=== PATIENT | female | born 1985 | race Caucasian/White ===

== ENCOUNTER 2020-10-10 08:39 | Inpatient (IN) | payer OTHER ==
[~2020-10-10] VITALS: Ht 167.6 cm; Wt 120.3 kg
[~2020-10-10 08:39] MED LIST: ALPRAZOLAM0.5 MG PO; ESCITALOPRAM OX20 MG PO; LABETALOL HCL300 MG PO; LEXAPRO5 MG PO; METFORMIN HCL500 MG PO; NORCO 5-325 TA1 EACH PO; VITAMIN D21250 MCG PO
--- OUTSIDE RECORDS SUMMARY | 2020-10-10 08:42 | XMS ---
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 Rain has no Care Guidelines for this patient. Marcelino VISIT COUNT (12 MO.) 2 R[facility] [place] TOTAL 2 NOTE: Visits indicate total known visits. ED/UCC VISIT TRACKING (12 MO.) 10/10/2020 08:40 [facility] [place] TYPE: Emergency COMPLAINT: - FEVER, URINE PROBLEM 04/14/2020 01:35 [facility] [place] TYPE: Emergency COMPLAINT: - RIGHT UPPER QUAD PAIN INPATIENT VISIT TRACKING (12 MO.) 04/14/2020 01:36 [facility] [place] TYPE: Observation COMPLAINT: - CHOLECYSTITIS DIAGNOSES: - Hepatic fibrosis - Other fdc (current) drug therapy - Essential (primary) hypertension - prison (current) use of oral hypoglycemic drugs - Calculus of bile duct without cholangitis or cholecystitis with obstruction - Nonalcoholic steatohepatitis (UNGER) - Calculus of gallbladder with acute and chronic cholecystitis without obstruction - Right upper quadrant pain - Obesity, unspecified - Type 2 diabetes mellitus without complications - Contact with and (suspected) exposure to other viral communicable diseases - Body mass index [BMI] 45.0-49.9, adult [email or web address]
[2020-10-10] MEDS ORDERED: LEXAPRO20 MG PO (09:02)
[2020-10-10] MEDS ORDERED: WELLBUTRIN XL150 MG PO (09:02)
[2020-10-10] MEDS ORDERED: FLOMAX0.4 MG PO (09:03)
--- NOTE | 2020-10-10 15:52 | NUR ---
PT ARRIVED TO ROOM FROM ED. PT RESTING IN BED. PT ON ROOM AIR, LUNG SOUNDS CLEAR, DENIES SOB. PT WITH CHILLS, TEMP 100.1 INITIALLY BUT INCREASED TO 101.7, GIVEN TYLENOL PER ORDER. IV ABX INFUSING TO R HAND. CMS INTACT, WITHOUT EDEMA. ADMISSION INTAKE COMPLETED. PT DENIES OTHER NEEDS AT THIS TIME.
--- NOTE | 2020-10-10 17:00 | NUR ---
PT CONTINUES TO HAVE FEVER, TEMP 102.3 ORAL, GIVEN TYLENOL DR. MOISÉS ADAMES NOTIFIED BY HIDE EXAMINER MAYGAN, NEW ORDER FOR IBUPROFEN 600MG ONCE.
--- NOTE | 2020-10-10 17:44 | NUR ---
PATIENT AWAKE IN BED, VITALS AND I&OS CHARTED. RN NOTIFIED OF 101.8 TEMP AND LOW BP. RN CONSUELO IN TO DO MANUAL BP. CALL LIGHT IN REACH, NO OTHER NEEDS AT THIS TIME
--- NOTE | 2020-10-10 17:48 | NUR ---
PT ADMITTED FOR UTI FROM ED. PT ON ROOM AIR, LUNG SOUNDS CLEAR, DENIES SOB. PT WITH PERSISTENT FEVER, GIVEN TYLENOL AND MOTRIN. IV ZOSYN. PT TOLERATING 60G CARB DIET. PT INDEPENDENT IN ROOM.
--- NOTE | 2020-10-10 19:05 | NUR ---
PT LYING IN BED. SHIFT REPORT RECIEVED BY RN. WHITE BOARD CLEARED. TEMP 98.3 AXILLARY. CALL LIGHT IN REACH.
--- NOTE | 2020-10-10 21:59 | NUR ---
IN RM TO GET VITALS FOR RN, NO FURHTER NEEDS AT THIS TIME
--- NOTE | 2020-10-10 22:00 | NUR ---
PT LYING IN BED. ASSESSMENT COMPLETE. I AND O'S DONE. SCHEDULED MEDS GIVEN. VS STABLE. PT DENIES PAIN BUT TYLENOL GIVEN PER REQUEST. GLUCOSE 108 NO INSULIN REQUIRED.CALL LIGHT IN REACH.
--- NOTE | 2020-10-11 | NUR ---
PT LYING IN BED. EYES CLOSED. RR WNL WITH UNLABORED BREATHING. CALL LIGHT IN REACH.
--- NOTE | 2020-10-11 02:32 | NUR ---
VS AND I&O COMPLETED. PT DENIES PAIN OR NAUSEA AT THIS TIME. CALL LIGHT IN REACH.
--- NOTE | 2020-10-11 02:33 | NUR ---
VITALS DONE, I&Os IN, NO FURHTER NEEDS AT THIS TIME
--- NOTE | 2020-10-11 03:35 | NUR ---
PT LYING IN BED. EYES CLOSED. RR WNL WITH UNLABORED BREATHING. CALL LIGHT IN REACH.
--- NOTE | 2020-10-11 04:18 | NUR ---
PT LYING IN BED. EYES CLOSED. RR WNL WITH UNLABORED BREATHING. IV SALINE LOCKED. CALL LIGHT IN REACH.
--- NOTE | 2020-10-11 05:07 | NUR ---
PT UTILIZES CALL LIGHT, STATES SHE FEELS THOUGH TEMP IS ELEVATED. RN TO ROOM TO CHECK VITALS. TEMP 102.8 ORAL. PRN TYLENOL ADMINISTERED. PT DENIES FURTHER NEEDS. WILL RECHECK TEMP. CALL LIGHT IN PT REACH. PRIMARY RNS NOTIFIED.
--- NOTE | 2020-10-11 05:23 | NUR ---
PT LYING IN BED. ANUPAMA WHITT STATED TEMP BEING IN THE 100'S. RECHECKED TEMP AND IS 99.9 AXILLARY AND 100.3 ORAL. CHARGE NURSE ADMINISTERED TYLENOL. CALL LIGHT IN REACH. ASSESSMENT COMPLETE. NO FURTHER NEEDS.
--- NOTE | 2020-10-11 07:10 | NUR ---
HANDOFF REPORT RECEIVED FROM IMAGING ENGINEER RN.
--- NOTE | 2020-10-11 07:36 | NUR ---
PT C/O CHEST PAIN,DESCRIBED FLUTTERY AND DENIED CRUSHING AND SOB. HR 102. STATES " I DONT WANT TO ." PT COMFORTED BY THIS RN. HX OF ANXIETY. PT REQUESTED XANAX. NOTIFIED, VERBAL ORDER 0.5MG XANAX TO BE GIVEN Q8 PRN. ORDER REPEATED BACK.
--- NOTE | 2020-10-11 08:30 | NUR ---
PT SITTING UP IN BED. PT ON ROOM AIR, LUNG SOUNDS CLEAR, DENIES SOB. PT DENIES PAIN. IV ZOSYN INFUSING. PT BLOOD PRESSURE 116 SYSTOLIC, LABETALOL HELD AT THIS TIME, WILL DISCUSS WITH MD. Rivera TFEEALBARO ANXIOUS, GIVEN XANAX PRN. CMS INTACT, WITHOUT EDEMA. PT GIVEN 1 UNIT SS HUMALOG FOR BLOOD GLUCOSE 155. DISCUSSED PLAN OF CARE FOR THE DAY, PT DENIES OTHER NEEDS AT THIS TIME.
--- NOTE | 2020-10-11 10:00 | NUR ---
DISCUSSED BP WITH DR. CURIEL OK TO GIVEN LABETOLOL, DR. CURIEL VERBAL ORDER FOR LR 500ML BOLUS, INFUSING. PT DENIES OTHER NEEDS AT THIS TIME.
--- NOTE | 2020-10-11 11:18 | NUR ---
PT COMPLAINT OF HEADACHE, REQUESTING PAIN MEDICATION, DISCUSSED WITH PT THAT TYLENOL IS AVAILABLE BUT WOULD MASK FEVER AND WE NEED TO KNOW IF SHE CONTINUES TO HAVE FEVERS, OFFERED COFFEE AND PT AGREEABLE. PT DENIES OTHER NEEDS, SPOUSE AT BEDSIDE.
--- NOTE | 2020-10-11 12:06 | NUR ---
IV INFUSION COMPLETED. IV SALINE LOCKED. PT REQUESTING TEMP TO BE TAKEN, IS STARTING TO FEEL CHILLS, TEMP 100.8, WILL RECHECK IN 30 MINUTES. PT DENIES OTHER NEEDS AT THIS TIME.
--- NOTE | 2020-10-11 15:00 | NUR ---
PT RESTING IN BED, JUST RETURNED FROM BATHROOM. PT ON ROOM AIR, LUNG SOUNDS CLEAR, DENIES SOB. IV ZOSYN INFUSING. NO ACUTE CHANGES. PT DENIES OTHER NEEDS AT THIS TIME.
--- NOTE | 2020-10-11 15:41 | NUR ---
DID PATIENT BREAKFAST AND LUNCH BLOOD SUGARS.
--- NOTE | 2020-10-11 18:23 | NUR ---
IV ZOSYN INFUSION COMPLETED, IV SALINE LOCKED. PT ASSISTED WITH SHOWER SET UP, SHOWERING INDEPENDENTLY, GOWN AND BED LINENS CHANGED.
--- NOTE | 2020-10-11 18:33 | NUR ---
PT ON ROOM AIR, LUNG SOUNDS CLEAR. PT MAX TEMP TODAY 100.8, DID NOT REQUIRE TYLENOL TODAY. RECEIVING IV ZOSYN. PT INDEPENDENT IN ROOM, SHOWERED. TOLERTAING DIET, ACCU CHECKS AND SS HUMALOG. PT VOIDING QS. AWAITING URINE AND BLOOD CULTURES.
--- NOTE | 2020-10-11 19:59 | NUR ---
TGEMP 100.7 BC ORDERED, 1 NORCO GIVEN AND ICE FOR BACK OF HEAD, PROCEDURE EXPLAINED TO PT, STATED UNDERSTANDING
--- NOTE | 2020-10-11 22:40 | NUR ---
Dr Klein notified at 2014 of pts temp of 100.8 and of BC ordered. - Pt up to br at this time, voided large amounts of dark yellow urine, back to bedm temp WNL. On room air, clear lungs hos, LBM today, edema to LE and trace at hands, SL patent RH. Tolerating fluids well, no n/v, CBG 98, no coverage needed. No further c/o h/a. fresh ice to back of head given. No cough. Independent and coop with assessment. call light at bedside
--- NOTE | 2020-10-12 01:39 | NUR ---
resting, room air, eyes closed. call light at bedside
--- NOTE | 2020-10-12 01:59 | NUR ---
awakes easily, zosyn iv abx dose completed for this time, afebrile 97.7 oral. no c/o pain. call light at bedside, voiding qs
--- NOTE | 2020-10-12 03:39 | NUR ---
resting, no distresss, onroom air, turns self in bed, cll light and fluids at bedside
--- NOTE | 2020-10-12 05:35 | NUR ---
Pt has slept, had a temp at begining of shift of 100.8, BC obtained as per orders, Dr Kelley notified. medicatd with 1 [place], ice to back of head, temp down, currently afebrile. No further temps. Tolerating liquids well, no n/v, voiding QS. Tolerating IV abx well. No c/o urinaty problems. Independent in room, pleasant and buildings and grounds coordinator
--- NOTE | 2020-10-12 07:05 | NUR ---
BEDSIDE HANDOFF REPORT RECEIVED FROM MIXER ATTENDANT RN. PT SLEEPING, LEFT UNDISTURBED.
--- NOTE | 2020-10-12 09:20 | NUR ---
PT RESTING IN BED. DR. CURIEL AT BEDSIDE. PT ON ROOM AIR, LUNG SOUNDS CLEAR, DENIES SOB. PT DENIES PAIN. IV ZOSYN INFUSING. PT WITH BETTER APPETITE TODAY, BOWEL TONES ACTIVE, DENIES NAUSEA. CMS INTACT, WITHOUT EDEMA. PT DENIES OTHER NEEDS AT THIS TIME.
--- NOTE | 2020-10-12 09:40 | NUR ---
PATIENT SITTING UP IN BED. FRESH WATER GIVEN. PATIENT REFUSED SHOWER AT THIS TIME AND SAID MAYBE TONIGHT. CALL LIGHT IN REACH. NO FURTHER NEEDS AT THIS TIME.
--- NOTE | 2020-10-12 13:41 | NUR ---
PATIENT IN BED RESTING WITH EYES CLOSED. FRESH WATER GIVEN. CALL LIGHT IN REACH. NO FURTHER NEEDS AT THIS TIME.
--- NOTE | 2020-10-12 14:12 | NUR ---
PT CHANGED, INCONTINENT OF STOOL. PT WITH SKIN TEAR TO RIGHT RIGHT ILIAC CREST, CLEANSED AND ALLEVYN FOAM DRESSING APPLIED. PT REPOSITIONED TO RIGHT SIDE. PT WITH CONTRACTED LEFT WRIST AND ARM, PASSIVE RANGE OF MOTION COMPLETED, ARM SUPPORTED WITH PILLOW AND TOWEL ROLL PLACED IN HAND. SON NOW AT BEDSIDE.
--- NOTE | 2020-10-12 14:30 | NUR ---
PT RETURNING FROM BATHROOM. PT ON ROOM AIR, LUNG SOUNDS CLEAR. PT AFEBRIL TODAY, FEELIN GMUCH BETTER. AFTERNOON ASSESSMENT COMPLETED, NO ACUTE CHANGES. IV ZOSYN INFUSION STARTED. PT PROVIDED WITH FRESH WATER, DENIES OTHER NEEDS AT THIS TIME.
--- NOTE | 2020-10-12 17:49 | NUR ---
PT RESTING IN BED. PT ATE 100% OF DINNER. SS HUMALOG HELD. PT DENIES OTHER NEED AT THIS TIME.
--- NOTE | 2020-10-12 17:55 | NUR ---
PT OVERALL FEELS MUCH BETTER TODAY. PT ON ROOM AIR, LUNG SOUNDS CLEAR. SS INSULIN HELD, BLOOD GLUCOSE WELL CONTROLLED WITH DIET. PT RECEIVED IV ZOSYN, OTHERWISE SL. PT WITH GOOD ORAL INTAKE. VOIDING QS. PT AFEBRILE THROUGHOUT SHIFT.
--- NOTE | 2020-10-12 20:12 | NUR ---
c/o bladder pain, willl be medicated with 1 norco, on room air, family in room. 1x k given as per orders
--- NOTE | 2020-10-12 22:06 | NUR ---
ASSISTED PRIMARY RN SILVINO. V/S AND I&O DONE. EMPTIED THE URINE FROM THE HAT.
--- NOTE | 2020-10-12 22:33 | NUR ---
independent in room, on room air, sl patent, no c/o advese reaction to ancef iv abx. no further c/o kidnay/bladder pain, medicated with Xanax per c/o anxiety and prior to going to sleep. Tolerating large amounts of fluids
--- NOTE | 2020-10-13 00:53 | NUR ---
resting, eyes closed, no distress, turn self in bed. call light at bedside
--- NOTE | 2020-10-13 03:57 | NUR ---
resting, on room air, no s/sx distress. call light and fluids at bedside
--- NOTE | 2020-10-13 06:43 | NUR ---
pt has slept, was medicated with 1 norco per bladder and kidney painwith great relief. no further c/o, no c/o burning with urination , afebrile. tolerating large amounts of fluids. coop. no c/o adverse reaction to ancef. sl patent. looking forward to going home today with urology f/u for stent removal/f/u maintenance care
--- NOTE | 2020-10-13 07:51 | NUR ---
REPORT RECEIVED. PT IN BED WITH EYES CLOSED. CALL LIGHT IN REACH. RESPIRAITONS EQUAL AND NONLABORED.
--- NOTE | 2020-10-13 09:30 | NUR ---
ASSESSMENT COMPLETED. PT DENEIS PAIN.; NO FLANK PAIN PRESENT. VOIDING WELL. LUNGS CLEAR. HEART SOUNDS REGULAR. NO CONCERNS. CALL LIGHT IN REACH.
--- NOTE | 2020-10-13 10:19 | NUR ---
PATIENT LAYING IN BED, SHE STATES THAT SHE IS FEELING BETTER, VITAL SIGNS WERE ALREADY DONE, INTAKE AND OUTPUT WERE DONE, CALL LIGHT WITHIN REACH, NOTHING ELSE TO REPORT AT THIS TIME
[2020-10-13] MEDS ORDERED: CEPHALEXIN500 MG PO (11:47)
--- NOTE | 2020-10-13 12:58 | NUR ---
PATIENT SITTING UP EATING LUNCH. 1 UNIT INSULIN GIVEN. PATIENT PRE-MEDICATED FOR STENT REMOVALS.
--- NOTE | 2020-10-13 14:31 | NUR ---
PATIENT DISCHARGING. STAFF STATES PATIENT IS INDEPENDENT, HAS GOOD SUPPORT WITH NO KNOWN BARRIERS TO DISCHARGE HOME. THEY WILL CALL IF SOMETHING COMES UP. DEFER FURTHER ASSESSMENT AT THIS TIME.
--- NOTE | 2020-10-13 14:33 | NUR ---
PT ALERT, ORIENTE AND SITTING UP IN BED. PAIN IS CONTROLLED, PT HOPING FOR DC LATER TODAY. REALLY MISSING HER CHILD, ALL QUESTIONS ASKED ANSWERED. RITA DIXON AND DEEDEE. WILL FOLLOW
== END 2020-10-13 14:45 | disposition home or self-care (01) | DRG 872 ==
LOC: ED 08:39 → MS 13:42
PROVIDERS: ADMIT Internal Medicine; ATTEND Internal Medicine
DX: A41.59 Other Gram-negative sepsis (principal); N39.0 Urinary tract infection, site not specified; Z68.41 Body mass index [BMI] 40.0-44.9, adult; Z20.828 Contact with and (suspected) exposure to other viral communicable diseases; B96.1 Klebsiella pneumoniae [K. pneumoniae] as the cause of diseases classified elsewhere; E66.01 Morbid (severe) obesity due to excess calories; I10 Essential (primary) hypertension; E11.9 Type 2 diabetes mellitus without complications; F32.9 Major depressive disorder, single episode, unspecified; Z88.8 Allergy status to other drugs, medicaments and biological substances; Z79.899 Other long term (current) drug therapy; Z79.84 Long term (current) use of oral hypoglycemic drugs; Z79.891 Long term (current) use of opiate analgesic; Z96.0 Presence of urogenital implants
CPT/HCPCS: 36415; 74176; 80048; 80053; 81001; 83605; 85025; 87077; 87088; 87186; 96365; 96375; 99285-25; A9270; C9803; J0690; J0696; J1815; J1885; J2405; J2543; J7030; J7121; U0003